=== PATIENT | male | born 1990 | race Caucasian/White ===

== ENCOUNTER 2017-08-01 20:40 | Emergency (ER) | payer BC, OTHER ==
[2017-08-01] MEDS ORDERED: Cyclobenzaprine 10 MG TAB ONE (20:58)
== END 2017-08-01 21:22 | disposition home or self-care (01) ==
LOC: NAV ERS 20:40
DX: S29.012A Strain of muscle and tendon of back wall of thorax, initial encounter (principal); Y99.0 Civilian activity done for income or pay; F17.210 Nicotine dependence, cigarettes, uncomplicated
CPT/HCPCS: 99406

== ENCOUNTER 2017-09-01 21:13 | Emergency (ER) | payer OTHER ==
[2017-09-01] MEDS ORDERED: Sulfameth/Trimethoprim DS 800-160mg TAB ONE (21:35)
[2017-09-01] MEDS ORDERED: Cephalexin 250 MG CAP ONE (21:35)
== END 2017-09-01 21:45 | disposition home or self-care (01) ==
LOC: NAV ERS 21:13
DX: L03.115 Cellulitis of right lower limb (principal); F17.210 Nicotine dependence, cigarettes, uncomplicated
CPT/HCPCS: 36416; 99283